=== PATIENT | male | born 1950 | race Caucasian/White ===

== ENCOUNTER → 2017-12-06 09:36 | Outpatient (CLI) | payer OTHER, MEDICARE, SELFPAY ==
--- NOTE | 2017-12-06 09:45 | RAD_ITS ---
STUDY: X-RAY CHEST REASON FOR EXAM: Male, 67 years old. Weight-loss. TECHNIQUE: Frontal and lateral views of the chest COMPARISON: None. FINDINGS: The lungs are clear. There are no pleural effusions. There is no pneumothorax. The heart is normal in size. The visualized osseous structures are within normal limits. RAD/Chest PA and Lateral IMPRESSION: No acute thoracic pathology. Please note that chest radiographs cannot exclude lung cancer. If indicated, further evaluation with CT can be performed. Electronically Signed: Jose Harris, at 21:08 EST Tel , Service support ,
[2017-12-06 13:04] LABS: Absolute Lymphocyte Count 1.75 X10^3/ul (0.83-4.51); Absolute Neutrophil Count 3.2 X10^3/uL (2.0-7.7); Basophil# 0.03 X10^3/uL; Basophil% 0.5 % (0-1); Eosinophils% 1.8 % (0-5); Hemoglobin 14.5 g/dl (13.0-16.5); Lymphocyte # 1.75 X10^3/ul (4.0); Lymphocyte % 30.9 % (19-41); Mean Corpuscular Hgb 30.7 pg (27.0-32.0); Mean Platelet Vol. 10.7 fl (6.2-12.0); Monocyte% 10.6 % (0-10); Neutrophil # 3.17 X10^3/uL (2.7-7.7); Platelet Count 320 K/mm3 (150-450); RBC Distribution Width CV 13.9 % (11.6-14.6); RBC Distribution Width SD 45.8 fl (35.1-43.9); Red Blood Count 4.73 M/mm3 (4.6-6.2); White Blood Count 5.7 K/mm3 (4.4-11.0)
[2017-12-06 13:12] LABS: POSITIVE COUNT NO; POSITIVE DIFFERENTIAL NO; POSITIVE MORPHOLOGY NO
[2017-12-06 13:38] LABS: ALB/GLOB Ratio 1.1 RATIO (0.9-2.4); AST(SGOT) 18 U/L (15-37); Alanine Aminotransfer ALT/SGPT 28 U/L (16-61); Albumin, Serum 3.9 g/dL (3.2-5.0); Alkaline Phosphatase 78 U/L (45-117); Anion Gap 7 (5-15); BUN 16 mg/dL (7-18); BUN/Creat Ratio 17.7 RATIO (10-20); Calcium,Total 8.5 mg/dL (8.5-10.1); Chloride 105 mmol/L (98-107); EST Glomerular Filtration Rate 89 mL/min (>60); Est Glom Filt Rate - Afr Amer 107 mL/min (>60); Globulin 3.5 g/dL (2.2-4.2); Glucose 85 mg/dL (74-106); PSA,Total - Annual Screen 0.51 ng/mL (0.00-4.00); Potassium 3.7 mmol/L (3.5-5.1); Protein, Total 7.4 g/dL (6.4-8.2); Sodium Level 140 mmol/L (136-145); Thyroid Stim Hormone (TSH) 2.24 uIU/mL (0.358-3.74)
[2017-12-07 11:18] LABS: Hep C Antibodies <0.1 s/co ratio (0.0-0.9)
== END ==
PROVIDERS: Family Provider Family Medicine Geriatric Medicine; PCP Family Medicine Geriatric Medicine; Visit Provider Family Medicine Geriatric Medicine
DX: R63.4 Abnormal weight loss (principal); F52.8 Other sexual dysfunction not due to a substance or known physiological condition; I10 Essential (primary) hypertension; Z12.5 Encounter for screening for malignant neoplasm of prostate; Z13.89 Encounter for screening for other disorder
CPT/HCPCS: 36415; 71046; 80053; 84153; 84403; 84443; 85025; 86803; G0103

== ENCOUNTER → 2018-12-11 08:54 | Outpatient (CLI) | payer OTHER, MEDICARE, SELFPAY ==
[2018-12-11 12:42] LABS: Absolute Lymphocyte Count 1.76 X10^3/ul (0.83-4.51); Basophil# 0.03 X10^3/uL; Basophil% 0.6 % (0-1); Eosinophil# 0.08 X10^3/uL; Eosinophils% 1.5 % (0-5); Hematocrit 44.7 % (40-54); Hemoglobin 14.2 g/dl (13.0-16.5); Lymphocyte # 1.76 X10^3/ul (4.0); Lymphocyte % 33.3 % (19-41); Mean Corp Hgb Conc 31.8 g/gl (32-36); Mean Corpuscular Hgb 29.6 pg (27.0-32.0); Mean Corpuscular Volume 93.3 fL (80-94); Mean Platelet Vol. 10.4 fl (6.2-12.0); Monocyte# 0.45 X10^3/uL; Monocyte% 8.5 % (0-10); Neutrophil # 2.95 X10^3/uL (2.7-7.7); Neutrophil % 55.9 % (47-70); Platelet Count 319 K/mm3 (150-450); RBC Distribution Width SD 47.5 fl (35.1-43.9); Red Blood Count 4.79 M/mm3 (4.6-6.2); White Blood Count 5.3 K/mm3 (4.4-11.0)
[2018-12-11 12:44] LABS: POSITIVE COUNT NO; POSITIVE DIFFERENTIAL NO; POSITIVE MORPHOLOGY NO
[2018-12-11 13:06] LABS: ALB/GLOB Ratio 1.1 RATIO (0.9-2.4); AST(SGOT) 16 U/L (15-37); Alanine Aminotransfer ALT/SGPT 27 U/L (16-61); Albumin, Serum 3.9 g/dL (3.2-5.0); Alkaline Phosphatase 84 U/L (45-117); Anion Gap 7 (5-15); BUN 17 mg/dL (7-18); BUN/Creat Ratio 18.5 RATIO (10-20); Calcium,Total 8.6 mg/dL (8.5-10.1); Chloride 106 mmol/L (98-107); Creatinine, Serum 0.92 mg/dL (0.70-1.30); EST Glomerular Filtration Rate 87 mL/min (>60); Est Glom Filt Rate - Afr Amer 105 mL/min (>60); Globulin 3.4 g/dL (2.2-4.2); Glucose 81 mg/dL (74-106); PSA,Total - Annual Screen 0.68 ng/mL (0.00-4.00); Potassium 3.6 mmol/L (3.5-5.1); Protein, Total 7.3 g/dL (6.4-8.2); Sodium Level 139 mmol/L (136-145); Thyroid Stim Hormone (TSH) 2.37 uIU/mL (0.358-3.74)
== END ==
PROVIDERS: Family Provider Family Medicine Geriatric Medicine; PCP Family Medicine Geriatric Medicine; Visit Provider Family Medicine Geriatric Medicine
DX: I10 Essential (primary) hypertension (principal); F52.8 Other sexual dysfunction not due to a substance or known physiological condition; Z12.5 Encounter for screening for malignant neoplasm of prostate
CPT/HCPCS: 36415; 80053; 84153; 84403; 84443; 85025; G0103

== ENCOUNTER → 2019-12-15 11:23 | Outpatient (CLI) | payer OTHER, MEDICARE, SELFPAY ==
[2019-12-15 12:47] LABS: Absolute Lymphocyte Count 1.64 X10^3/uL (0.83-4.51); Absolute Neutrophil Count 2.9 X10^3/uL (2.0-7.7); Basophil# 0.03 X10^3/uL; Basophil% 0.6 % (0-1); Eosinophil# 0.07 X10^3/uL; Eosinophils% 1.4 % (0-5); Hemoglobin 14.4 g/dL (13.0-16.5); Lymphocyte # 1.64 X10^3/ul (4.0); Lymphocyte % 32.3 % (19-41); Mean Corpuscular Hgb 30.2 pg (27.0-32.0); Mean Corpuscular Volume 94.3 fL (80-94); Mean Platelet Vol. 10.6 fl (6.2-12.0); Monocyte# 0.46 X10^3/uL; Monocyte% 9.1 % (0-10); NRBC Flagged by Analyzer 0 % (0-5); Neutrophil # 2.85 X10^3/uL (2.7-7.7); Neutrophil % 56.2 % (47-70); Platelet Count 335 K/mm3 (150-450); RBC Distribution Width CV 13.6 % (11.6-14.6); RBC Distribution Width SD 47.4 fl (35.1-43.9); Red Blood Count 4.77 M/mm3 (4.6-6.2); White Blood Count 5.1 K/mm3 (4.4-11.0)
[2019-12-15 13:03] LABS: ALB/GLOB Ratio 1.1 RATIO (0.9-2.4); AST(SGOT) 15 U/L (15-37); Alanine Aminotransfer ALT/SGPT 25 U/L (16-61); Alkaline Phosphatase 80 U/L (45-117); Anion Gap 6 (5-15); BUN 16 mg/dL (7-18); BUN/Creat Ratio 15.1 RATIO (10-20); Calcium,Total 9.4 mg/dL (8.5-10.1); Chloride 108 mmol/L (98-107); Creatinine, Serum 1.06 mg/dL (0.70-1.30); EST Glomerular Filtration Rate 73 mL/min (>60); Est Glom Filt Rate - Afr Amer 89 mL/min (>60); Globulin 3.7 g/dL (2.2-4.2); Glucose 94 mg/dL (74-106); PSA,Total - Annual Screen 0.51 ng/mL (0.00-4.00); Potassium 3.9 mmol/L (3.5-5.1); Protein, Total 7.7 g/dL (6.4-8.2); Sodium Level 143 mmol/L (136-145); Thyroid Stim Hormone (TSH) 1.72 uIU/mL (0.358-3.74)
== END ==
PROVIDERS: PCP Family Medicine Geriatric Medicine; Visit Provider Family Medicine Geriatric Medicine
DX: E23.6 Other disorders of pituitary gland (principal); I10 Essential (primary) hypertension; Z12.5 Encounter for screening for malignant neoplasm of prostate
CPT/HCPCS: 36415; 80053; 84153; 84403; 84443; 85025; G0103

== ENCOUNTER → 2020-04-08 07:31 | Outpatient (CLI) | payer OTHER, SELFPAY ==
[2020-04-08 08:17] LABS: Anion Gap 5 (5-15); BUN 21 mg/dL (7-18); BUN/Creat Ratio 22.5 RATIO (10-20); Calcium,Total 8.6 mg/dL (8.5-10.1); Chloride 107 mmol/L (98-107); Cholesterol 160 mg/dL (200); Creatinine, Serum 0.93 mg/dL (0.70-1.30); EST Glomerular Filtration Rate 85 mL/min (>60); Est Glom Filt Rate - Afr Amer 103 mL/min (>60); Glucose 93 mg/dL (74-106); High Density Lipoprotein 77 mg/dL; Potassium 3.5 mmol/L (3.5-5.1); Sodium Level 142 mmol/L (136-145); Triglycerides 55 mg/dL; Very Low Density Lipoprotein 11 mg/dL (5-40)
[2020-04-08 09:16] LABS: Vitamin D,25 Hydroxy 48.2 ng/mL
== END ==
PROVIDERS: PCP Family Medicine; Referring Provider Family Medicine; Visit Provider Family Medicine
DX: Z00.00 Encounter for general adult medical examination without abnormal findings (principal); E55.9 Vitamin D deficiency, unspecified
CPT/HCPCS: 36415; 80048; 80061; 82306

== ENCOUNTER → 2020-10-12 09:48 | Outpatient (CLI) | payer OTHER, SELFPAY ==
--- NOTE | 2020-10-12 10:00 | RAD_ITS ---
STUDY: X-RAY - ORBITS REASON FOR EXAM: Male, 69 years old. Pre MRI orbits -- h/o metal in eye, unsure which eye TECHNIQUE: 2 view(s) of the orbits were obtained. COMPARISON: None. FINDINGS: Normal bilateral orbits without a metallic orbital foreign body. Normal visualized facial bones. Normal paranasal sinuses. The soft tissue structures are unremarkable. RAD/Orbits for Foreign Body IMPRESSION: No demonstrated metallic orbital foreign body. The patient is cleared for an MRI examination. Electronically Signed: Dylan Lazo, at 10:25 EST , Service support ,
--- NOTE | 2020-10-12 10:45 | MRI_ITS ---
ACR Level 3 findings have been noted. An addendum which confirms receipt of the report will follow. STUDY: MRI BRAIN WITH AND WITHOUT CONTRAST REASON FOR EXAM: Male, 69 years old. Tinnitus- RIGHT ear, hearing loss TECHNIQUE: Standardized multiplanar fat and water weighted pulse sequences were obtained. 15ml Dotarem via IV was administered for the contrast portion of the examination. Thin multiplanar sections were also done with and without contrast in both internal auditory canals. COMPARISON: None. FINDINGS: No diffusion constriction throughout the brain parenchyma. There is a 7 x 5 mm solid enhancing mass in the right porus acusticus. This is consistent with vestibular schwannoma. No abnormal enhancing lesions in the left internal auditory canal. Normal size of the ventricles and extra-axial spaces for the patient''s age. Normal white matter tracts of the supratentorial brain. Normal bilateral basal ganglia. Normal thalami. There is no extra-axial fluid accumulation. Normal flow voids within the major intracranial circulation suggesting patency by spin echo criteria. Normal venous enhancement. There is no enhancing intra-axial or extra-axial abnormality. Normal sella turcica, pituitary gland, infundibular stalk, optic chiasm and hypothalamus. Normal tectal plate and pineal gland. Normal midbrain, mela and medulla. Normal cerebellum. Normal basal cisterns. Normal bilateral temporal bones. No demonstrated orbital abnormality, within the constraints of a routine brain study. Normal visualized paranasal sinuses. Normal calvarium and skull base. Normal visualized soft tissue structures. Normal visualized upper cervical spine. MRI/Brain W/WO Contrast IMPRESSION: 1. 7 x 5 mm solid enhancing mass in the right porus acusticus consistent with vestibular schwannoma. 2. The remainder of the brain is normal. Electronically Signed: Zeeshan Colon MD at 13:00 EST , Service support ,
[2020-10-12 12:35] LABS: EGFR FINGERSTICK > 60.0000 mL/min (>60)
== END ==
PROVIDERS: PCP Family Medicine; Referring Provider Otolaryngology; Visit Provider Otolaryngology
DX: H93.11 Tinnitus, right ear (principal); H90.3 Sensorineural hearing loss, bilateral
CPT/HCPCS: 70030; 70553; A9575

== ENCOUNTER → 2020-10-19 09:02 | Outpatient (CLI) | payer OTHER, SELFPAY ==
--- NOTE | 2020-10-19 | ASPOS_PTH ---
PATIENT: CLEO ANTHONY LOC: [facility] U#:[id number] AGE/SX: 74/M ROOM: RE10/19/[address]: Dr. Eulogio Brunson MD : 1950 BED: DIS: SPEC #: [id number] RECD: 10/19/20 10:40 STATUS: CHERYL GILES #: [id number] SEVEN: 10/19/20 00:[address]: Eulogio Brunson DEPT: CYTOLOGY RECD BY: Omar Ace ENTERED: 10/19/20 10:40 SP TYPE: ASP HERE OTHR DR: Dr. 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 AM:justice 10/20/2020 COMMENT The specimen is evaluated at the time of FNA by Dr. Martinez. Immediate Evaluation = Mature adipose tissue suggestive of lipoma. CYTOLOGY STUDY Slides are reviewed. CYTOLOGY GROSS Received is 0.1 ml of clear fluid labeled with the patient's name, and designated right posterior neck mass. Three imprints and one pap are made from the submitted fluid and the rest is added to CytoLyt for cell block preparation. Submitted for cytology study. / AM:justice 10/19/2020 TC:1 CPT: 51929, 11713, 26322, 22695
== END ==
PROVIDERS: PCP Family Medicine; Referring Provider Otolaryngology; Visit Provider Otolaryngology
DX: R22.1 Localized swelling, mass and lump, neck (principal)
CPT/HCPCS: 10021; 88161; 88305

== ENCOUNTER 2020-12-09 12:00 | Outpatient (RCR) | payer OTHER, SELFPAY ==
[2020-12-09] MEDS: COVID-19 VACC, MRNA(PFIZER)/PF 30 MCG/0.3 ML SYRINGE IM (09:38)
[2020-12-30] MEDS: COVID-19 VACC, MRNA(PFIZER)/PF 30 MCG/0.3 ML SYRINGE IM (09:21)
== END 2021-03-08 23:59 ==
LOC: IMMUN 12:00
PROVIDERS: PCP Family Medicine; Visit Provider Family Medicine
DX: Z23 Encounter for immunization (principal)
CPT/HCPCS: 0001A; 0002A; 91300

== ENCOUNTER → 2021-07-28 09:53 | Outpatient (CLI) | payer OTHER, SELFPAY ==
[2021-07-28 12:14] LABS: Anion Gap 3 (5-15); BUN 19 mg/dL (7-18); BUN/Creat Ratio 19.2 RATIO (10-20); Calcium,Total 9.5 mg/dL (8.5-10.1); Chloride 108 mmol/L (98-107); Cholesterol 139 mg/dL (200); Creatinine, Serum 0.99 mg/dL (0.70-1.30); EST Glomerular Filtration Rate 79 mL/min (>60); Est Glom Filt Rate - Afr Amer 96 mL/min (>60); Glucose 96 mg/dL (74-106); High Density Lipoprotein 85 mg/dL; PSA,Total - Annual Screen 0.67 ng/mL (0.00-4.00); Potassium 4.3 mmol/L (3.5-5.1); Sodium Level 142 mmol/L (136-145); Triglycerides 73 mg/dL; Very Low Density Lipoprotein 15 mg/dL (5-40)
== END ==
PROVIDERS: PCP Family Medicine; Referring Provider Family Medicine; Visit Provider Family Medicine
DX: Z00.00 Encounter for general adult medical examination without abnormal findings (principal); Z12.5 Encounter for screening for malignant neoplasm of prostate
CPT/HCPCS: 36415; 80048; 80061; 84153; G0103

== ENCOUNTER → 2022-03-21 | Outpatient (CLI) | payer OTHER, SELFPAY ==
--- NOTE | 2022-03-21 07:45 | MRI_ITS ---
STUDY: MRI BRAIN WITH AND WITHOUT CONTRAST (ATTENTION INTERNAL AUDITORY CANALS - I.A.C.''s) REASON FOR EXAM: Male, 71 years old. Hx of RIGHT ACOUSTIC NEUROMA TECHNIQUE: Standardized multiplanar fat and water weighted pulse sequences were obtained. ml of 15ml Dotarem contrast material was administered intravenously for the contrast portion of the examination. COMPARISON: MRI of the brain dated October 12, 2020 FINDINGS: Normal bilateral temporal bones. Normal bilateral internal auditory canals. Reidentification of an enhancing 7 x 5 mm there ovoid mass of the 7th and 8th cranial nerves at the origin of the right internal auditory canal, consistent with a benign acoustic neuroma. No interval change in size since the prior study. No new masses are present. The remaining aspects of the right 7th and 8th nerves are normal. Normal left internal auditory canal and 7th and 8th nerves and associated structures. No abnormal enhancement or parenchymal signal or suspicious lesions of the brain parenchyma. Normal bilateral cochlea, vestibules and semicircular canals. There is mild cerebral atrophy with widening of the extra-axial spaces and ventricular dilatation. There are a limited number of small white matter hyperintensities, distributed throughout the deep white matter tracts of the cerebral hemispheres, consistent with mild chronic white matter ischemic changes. There is no evidence for recent intracranial ischemia or other cause of cytotoxic edema on diffusion weighted imaging (DWI). Normal bilateral basal ganglia. Normal thalami. Normal flow voids within the major intracranial circulation suggesting patency by spin echo criteria. Normal venous enhancement. There is no enhancing intra-axial or extra-axial abnormality. There is no extra-axial fluid accumulation. Normal sella turcica, pituitary gland, infundibular stalk, optic chiasm and hypothalamus. Shallow sella turcica which is a normal variant. Normal tectal plate and pineal gland. Normal midbrain, mela and medulla. Normal cerebellum. Normal basal cisterns. No demonstrated orbital abnormality, within the constraints of a routine brain study. Normal visualized paranasal sinuses. Normal calvarium and skull base. Normal visualized soft tissue structures. Normal visualized upper cervical spine. MRI/Brain W/WO Contrast IMPRESSION: 1. Reidentification of an enhancing 7 x 5 mm there ovoid mass of the 7th and 8th cranial nerves at the origin of the right internal auditory canal, consistent with a benign acoustic neuroma. No interval change in size since the prior study. No new masses are present. The remaining aspects of the right 7th and 8th nerves are normal. 2. Normal left internal auditory canal and 7th and 8th nerves and associated structures. 3. No abnormal enhancement or parenchymal signal or suspicious lesions of the brain parenchyma. 4. Normal bilateral cochlea, vestibules and semicircular canals. Electronically Signed: Clay Hercules MD at 15:29 EDT ,
[2022-03-21 09:20] LABS: CREATININE FINGERSTICK < 0.9 mg/dL (0.70-1.30)
[2022-03-21 09:21] LABS: EGFR FINGERSTICK > 60 mL/min (>60)
== END | disposition home or self-care (01) ==
LOC: MRI 07:13
PROVIDERS: PCP Family Medicine; Referring Provider Family Medicine
DX: D33.3 Benign neoplasm of cranial nerves (principal); H90.3 Sensorineural hearing loss, bilateral
CPT/HCPCS: 70553; A9575

== ENCOUNTER → 2022-07-31 | Outpatient (CLI) | payer OTHER, SELFPAY ==
[2022-07-31 12:44] LABS: Anion Gap 6 (5-15); BUN 17 mg/dL (7-18); BUN/Creat Ratio 17.9 RATIO (10-20); Calcium,Total 9.7 mg/dL (8.5-10.1); Chloride 107 mmol/L (98-107); Cholesterol 168 mg/dL (200); Creatinine, Serum 0.95 mg/dL (0.70-1.30); EST Glomerular Filtration Rate 83 mL/min (>60); Est Glom Filt Rate - Afr Amer 100 mL/min (>60); Glucose 100 mg/dL (74-106); High Density Lipoprotein 90 mg/dL; PSA,Total - Annual Screen 0.83 ng/mL (0.00-4.00); Sodium Level 144 mmol/L (136-145); Triglycerides 89 mg/dL; Very Low Density Lipoprotein 18 mg/dL (5-40)
== END | disposition home or self-care (01) ==
PROVIDERS: PCP Family Medicine; Referring Provider Family Medicine; Visit Provider Family Medicine
DX: Z00.00 Encounter for general adult medical examination without abnormal findings (principal)
CPT/HCPCS: 36415; 80048; 80061; 84153; G0103

== ENCOUNTER → 2023-04-10 | Outpatient (CLI) | payer OTHER, SELFPAY ==
--- NOTE | 2023-04-10 07:13 | MRI_ITS ---
EXAM: MR HEAD WITHOUT AND WITH INTRAVENOUS CONTRAST CLINICAL INDICATION: Increased hearing loss. Follow-up acoustic neuroma. TECHNIQUE: Multiplanar and multisequence MR images of the brain were obtained without and with intravenous contrast. CONTRAST: IV 17ml Clariscan COMPARISON: MRI brain with and without contrast 03/21/2022. FINDINGS: BRAIN AND EXTRA-AXIAL SPACES: Solid enhancing comma -shaped intracanalicular mass in the right IAC and protruding through the porus acusticus into the right CP angle cistern measures approximately 7 x 3 mm, previously 6 x 3 mm. No intra- or extra-axial hemorrhage. No evidence of acute infarct. There is preservation of the causey/white matter interface. Posterior fossa structures are unremarkable. Ventricles are appropriate for age. No hydrocephalus. SELLA: Unremarkable. Normal sella turcica, pituitary gland, infundibular stalk, optic chiasm and hypothalamus. AUDITORY SYSTEM: Unremarkable. The internal auditory canals are patent. BONES/JOINTS: Unremarkable. No discrete lytic or blastic abnormalities. SINUSES: Mucosal thickening in the maxillary sinuses and contraction of the maxillary sinuses due to chronic sinusitis. They are unchanged. Mild mucosal thickening in the ethmoid sinuses are unchanged. MASTOID AIR CELLS: Unremarkable as visualized. Clear. ORBITS: Unremarkable as visualized. Both globes, extraocular muscles, optic nerves and retrobulbar fat appear unremarkable. VASCULATURE: Unremarkable as visualized. Normal flow voids in the major intracranial circulation. MRI/Brain W/WO Contrast IMPRESSION: Minimal increase in size of solid enhancing right-sided intracanalicular mass in the right IAC protruding out of the porus acusticus and into the posterior right CP angle cistern. This gives a comma-shaped mass and measuring 7 x 3 mm, previously 6 x 3 mm. Electronically Signed: Zeeshan Colon MD at 14:07 EDT ,
[2023-04-11 08:40] LABS: CREATININE FINGERSTICK < 0.90 mg/dL (0.70-1.30); EGFR FINGERSTICK > 60 mL/min (>60)
== END | disposition home or self-care (01) ==
PROVIDERS: PCP Family Medicine
DX: D33.2 Benign neoplasm of brain, unspecified (principal)
CPT/HCPCS: 70553; A9575

== ENCOUNTER → 2023-08-06 | Outpatient (CLI) | payer OTHER, SELFPAY ==
[2023-08-06 10:45] LABS: Anion Gap 2 (5-15); BUN 25 mg/dL (7-18); BUN/Creat Ratio 24.3 RATIO (10-20); Calcium,Total 9.2 mg/dL (8.5-10.1); Chloride 108 mmol/L (98-107); Cholesterol 155 mg/dL (200); Creatinine, Serum 1.03 mg/dL (0.70-1.30); EST Glomerular Filtration Rate 75 mL/min (>60); Est Glom Filt Rate - Afr Amer 91 mL/min (>60); Glucose 94 mg/dL (74-106); High Density Lipoprotein 83 mg/dL; PSA,Total - Annual Screen 0.78 ng/mL (0.00-4.00); Potassium 4.2 mmol/L (3.5-5.1); Sodium Level 142 mmol/L (136-145); Triglycerides 50 mg/dL; Very Low Density Lipoprotein 10 mg/dL (5-40)
== END | disposition home or self-care (01) ==
LOC: MFPLAB 08:39
PROVIDERS: PCP Family Medicine; Visit Provider Family Medicine
DX: Z00.00 Encounter for general adult medical examination without abnormal findings (principal)
CPT/HCPCS: 36415; 80048; 80061; 84153; G0103

== ENCOUNTER → 2024-04-08 | Outpatient (CLI) | payer OTHER, SELFPAY ==
--- NOTE | 2024-04-08 16:45 | MRI_ITS ---
STUDY: MRI BRAIN WITH AND WITHOUT CONTRAST (ATTENTION INTERNAL AUDITORY CANALS - I.A.C.''s) REASON FOR EXAM: Male, 73 years old. SENSORINEURAL HEARING LOSS BILATERAL EARS TECHNIQUE: Standardized multiplanar fat and water weighted pulse sequences were obtained. IV 15CC CLARISCAN was administered for the contrast portion of the examination. COMPARISON: 04/10/2023 FINDINGS: Normal bilateral temporal bones. Normal bilateral internal auditory canals. There is no change in the 6 mm oval solidly enhancing mass at the junction of of the right internal auditory canal and the right cerebellopontine angle consistent with a vestibular schwannoma (acoustic neuroma) stenosis. There is no enhancement of the bilateral VIIth or VIIIth cranial nerves. Normal bilateral cochlea, vestibules and semicircular canals. There is mild cerebral atrophy with widening of the extra-axial spaces and ventricular dilatation. There are a limited number of small white matter hyperintensities, distributed throughout the deep white matter tracts of the cerebral hemispheres, consistent with mild chronic white matter ischemic changes. There is no evidence for recent intracranial ischemia or other cause of cytotoxic edema on diffusion weighted imaging (DWI). Normal bilateral basal ganglia. Normal thalami. Normal flow voids within the major intracranial circulation suggesting patency by spin echo criteria. Normal venous enhancement. There is no enhancing intra-axial or extra-axial abnormality. There is no extra-axial fluid accumulation. Normal sella turcica, pituitary gland, infundibular stalk, optic chiasm and hypothalamus. Normal tectal plate and pineal gland. Normal midbrain, mela and medulla. Normal cerebellum. Normal basal cisterns. No demonstrated orbital abnormality, within the constraints of a routine brain study. There is mucoperiosteal inflammatory disease of the paranasal sinuses consistent with mild chronic sinusitis. Normal calvarium and skull base. Normal visualized soft tissue structures. Normal visualized upper cervical spine. MRI/Brain W/WO Contrast IMPRESSION: No change in small right-sided vestibular schwannoma (acoustic neuroma). Electronically Signed: Sung Bermudez MD at 12:18 EDT ,
[2024-04-08 16:56] LABS: CREATININE FINGERSTICK < 1.0 mg/dL (0.70-1.30); EGFR FINGERSTICK > 60.0000 mL/min (>60)
== END | disposition home or self-care (01) ==
PROVIDERS: PCP Family Medicine
DX: D33.3 Benign neoplasm of cranial nerves (principal); H90.3 Sensorineural hearing loss, bilateral
CPT/HCPCS: 70553; A9575

== ENCOUNTER → 2025-07-27 | Outpatient (CLI) | payer MEDICARE, SELFPAY ==
[2025-07-27 13:10] LABS: Anion Gap 8 (5-15); BUN 18 mg/dL (4-19); BUN/Creat Ratio 18.9 RATIO (10-20); Calcium,Total 9.6 mg/dL (7.6-11.0); Carbon Dioxide 30.0 mmol/L (21.0-32.0); Chloride 105 mmol/L (98-108); Cholesterol 155 mg/dL (<=200); Glucose 92 mg/dL (70-99); Low Density Lipoprotein Calc. 61 mg/dL; PSA,Total- Diagnostic 1.02 ng/mL (0.00-4.00); Potassium 4.1 mmol/L (3.3-5.1); Triglycerides 66 mg/dL; Very Low Density Lipoprotein 13 mg/dL (5-40); cholesterol:hdl ratio screen 1.93
== END | disposition home or self-care (01) ==
LOC: MTLAB 10:16
PROVIDERS: PCP Family Medicine; Referring Provider Family Medicine; Visit Provider Family Medicine
DX: Z00.00 Encounter for general adult medical examination without abnormal findings (principal); N40.0 Benign prostatic hyperplasia without lower urinary tract symptoms
CPT/HCPCS: 36415; 80048; 80061; 84153